=== PATIENT | male | born 1945 | race Two or more races ===

== ENCOUNTER 2023-10-10 11:10 | Outpatient (CLI) | payer OTHER ==
[~2023-10-10 11:10] MED LIST: AMLODIPINE-OLM1 EAC2; CHILDREN'S ASPI81 MG; ELIQUIS5 MG; FINASTERIDE5 MG; SEROQUEL50 MG; SIMVASTATIN5 MG PO; SYNTHROID150 MCG; WIXELA 100-501 EACH; XOPENEX0.63 MG/3
== END 2023-10-10 11:20 | disposition home or self-care (01) ==
LOC: TOM 11:10
PROVIDERS: ATTEND Specialist
DX: R91.1 Solitary pulmonary nodule (principal); J43.9 Emphysema, unspecified; J44.9 Chronic obstructive pulmonary disease, unspecified